=== PATIENT | male | born 1960 | race Caucasian/White ===

== ENCOUNTER 2024-01-28 20:33 | Emergency (ER) | payer BC ==
[2024-01-28 20:57] VITALS: TEMP 97.7
--- NOTE | 2024-01-28 21:02 | ED ---
General Adult HPI - General Source: patient, EMS, RN notes reviewed Mode of arrival: EMS Limitations: no limitations <Shekhar Prajapati - Last Filed: 01/28/24 22:41> <Wayne Lance - Last Filed: 01/28/24 23:53> - General Chief complaint: Syncope Stated complaint: Syncope Time Seen by Provider: 01/28/24 20:45 - History of Present Illness Initial comments: Patient is a 63-year-old male present to the emergency department with syncopal episode. Patient states he was standing in the garage and had 2 sips of wine. Patient states he felt suddenly dizzy and spinning and nauseated. Patient then passed out. No injury. Patient still feels nauseated and tired however not as severe as it was earlier. No confusion. No weakness. (Shekhar Prajapati) - Related Data Home Medications Medication Instructions Recorded Confirmed Atorvastatin [Lipitor] 10 mg PO DAILY 02/10/16 02/14/16 Losartan Potassium 100 mg PO 01/28/24 Allergies Allergy/AdvReac Type Severity Reaction Status Date / Time cat dander Allergy Itching Verified 01/28/24 21:03 Iodine and Iodide Containing Allergy Anaphylaxis Verified 02/10/16 16:08 Produc shellfish derived Allergy Anaphylaxis Verified 02/10/16 16:08 Review of Systems ROS Other: All systems not noted in ROS Statement are negative. Constitutional: Denies: fever Eyes: Denies: eye pain ENT: Denies: ear pain Respiratory: Denies: cough Cardiovascular: Denies: chest pain Endocrine: Denies: fatigue Gastrointestinal: Denies: abdominal pain Neurological: Reports: vertigo. Denies: headache, weakness <Shekhar Prajapati - Last Filed: 01/28/24 22:41> ROS Other: All systems not noted in ROS Statement are negative. <Wayne Lance - Last Filed: 01/28/24 23:53> ROS Statement: Those systems with pertinent positive or pertinent negative responses have been documented in the HPI. Past Medical History Past Medical History: Hyperlipidemia, Hypertension Additional Past Medical History / Comment(s): hx varicose veins, vertigo, diabetes-type was on medicaiton, taken off metformin in 2022 History of Any Multi-Drug Resistant Organisms: None Reported Additional Past Surgical History / Comment(s): varicose vein stripping savi legs Past Anesthesia/Blood Transfusion Reactions: Motion Sickness, Postoperative Nausea & Vomiting (PONV) Smoking Status: Never smoker Past Alcohol Use History: None Reported Past Drug Use History: None Reported - Past Family History Mother Additional Family Medical History / Comment(s): osteoporosis,Parkinson's Father Family Medical History: Diabetes Mellitus, Hypertension <Shekhar Prajapati - Last Filed: 01/28/24 22:41> General Exam Limitations: no limitations General appearance: alert, in no apparent distress Head exam: Present: normocephalic Eye exam: Present: normal appearance, PERRL, EOMI, nystagmus (Horizontal) ENT exam: Present: normal oropharynx Neck exam: Present: normal inspection Respiratory exam: Present: normal lung sounds bilaterally Cardiovascular Exam: Present: regular rate, normal rhythm, normal heart sounds GI/Abdominal exam: Present: soft. Absent: tenderness Extremities exam: Present: normal inspection Neurological exam: Present: alert, oriented X3, CN II-XII intact. Absent: motor sensory deficit Expanded Neurological exam: Present: protecting the airway Speech: Present: fluid speech Cranial nerves: EOM's Intact: Normal Motor strength exam: RUE: 5, LUE: 5, RLE: 5, LLE: 5 Eye Response: (4) open spontaneously Motor Response: (6) obeys commands Verbal Response: (5) oriented Psychiatric exam: Present: normal affect, normal mood Skin exam: Present: normal color <Shekhar Prajapati - Last Filed: 01/28/24 22:41> Course Vital Signs 01/28/24 01/28/24 01/28/24 20:38 20:56 21:44 Temperature 97.7 F Pulse Rate 80 82 84 Respiratory 16 16 15 Rate Blood Pressure 134/87 119/74 O2 Sat by Pulse 99 98 100 Oximetry 01/28/24 23:28 Temperature Pulse Rate 79 Respiratory 16 Rate Blood Pressure 114/69 O2 Sat by Pulse 95 Oximetry EKG Findings - EKG Results: EKG: interpreted by ERMD, sinus rhythm, normal axis, normal QRS, normal ST/T <Shekhar Prajapati - Last Filed: 01/28/24 22:41> Medical Decision Making - Lab Data Result diagrams: 01/28/24 20:57 01/28/24 20:57 <Shekhar Prajapati - Last Filed: 01/28/24 22:41> - Lab Data Result diagrams: 01/28/24 20:57 01/28/24 20:57 <Wayne Lance D - Last Filed: 01/28/24 23:53> - Medical Decision Making Was pt. sent in by a medical professional or institution (, [employer], DIRECTOR OF INCOME [employer]AX, urgent care, hospital, or retirement...) When possible be specific @ -[No] Did you speak to anyone other than the patient for history (EMS, parent, family, police, friend...)? What history was obtained from this source @ -[No] Did you review nursing and triage notes (agree or disagree)? Why? @ -[I reviewed and agree with nursing and triage notes] Were old charts reviewed (outside hosp., previous admission, EMS record, old EKG, old radiological studies, urgent care reports/EKG's, retirement records)? Report findings @ -[No old charts were reviewed] Differential Diagnosis (chest pain, altered mental status, abdominal pain women, abdominal pain men, vaginal bleeding, weakness, fever, dyspnea, syncope, headache, dizziness, GI bleed, back pain, seizure, CVA, palpatations, mental health, musculoskeletal)? @ -Differential Dizziness: Benign paroxysmal positional Vertigo, Meniere's disease, otitis media, acoustic neuroma, vertebrobasilar insufficiency, cerebellar stroke, encephalitis, hypovolemic, arrhythmia, coronary artery syndrome, anemia, this is not meant to be an all-inclusive list EKG interpreted by me (3pts min.). @ -[As above] X-rays interpreted by me (1pt min.). @ -Chest x-ray shows no acute process CT interpreted by me (1pt min.). @ -CT brain shows no acute process U/S interpreted by me (1pt. min.). @ -[None done] What testing was considered but not performed or refused? (CT, X-rays, U/S, labs)? Why? @ -[None] What meds were considered but not given or refused? Why? @ -[None] Did you discuss the management of the patient with other professionals (professionals i.e. , [employer]ADIJAH, DIRECTOR OF INCOME [employer], lab, RT, psych nurse, social science teacher, pigment grinder, teacher, wildlife officer, case management manager)? Give summary @ -[No] Was smoking cessation discussed for >3mins.? @ -[No] Was critical care preformed (if so, how long)? @ -[No] Were there social determinants of health that impacted care today? How? (Homelessness, low income, unemployed, alcoholism, drug addiction, transportation, low edu. Level, literacy, decrease access to med. care, longterm, rehab)? @ -[No] Was there de-escalation of care discussed even if they declined (Discuss DNR or withdrawal of care, Hospice)? DNR status @ -[No] What co-morbidities impacted this encounter? (DM, HTN, Smoking, COPD, CAD, Cancer, CVA, ARF, Chemo, Hep., AIDS, mental health diagnosis, sleep apnea, morbid obesity)? @ -[None] Was patient admitted / discharged? Hospital course, mention meds given and route, prescriptions, significant lab abnormalities, going to OR and other pertinent info. @ -Patient presents with dizziness episode associated with syncopal episode. Patient provided medications and revaluation patient is feeling better. (Shekhar Prajapati) Patient care signed out to me by Dr. Prajapati at 10:45 PM. Briefly, patient presents to the emergency department with syncope and vertiginous symptoms. According to Dr. Prajapati patient did not have any high risk features of vertigo to suggest central nervous system cause. At signout was to follow-up with pending CT angiography head and neck. @11:[address] angiography of the head and neck was performed. Films interpreted by radiology found to be unremarkable. No evidence of large vessel occlusion. Patient reevaluated bedside 11:52 PM states that he has chronic vertigo. He does not have any vertigo or STE[employer]OWER SUPERINTENDENT type symptoms today. at the bedside states that he is only here because he passed out. Nonetheless patient will be discharged. He denies any cardiac history. Patient desires cultures. Be discharged. (Wayne Lance) - Lab Data Lab Results 01/28/24 01/28/24 01/28/24 Range/Units 19:37 20:57 20:57 WBC 8.3 (3.8-10.6) k/uL RBC 4.61 (4.30-5.90) m/uL Hgb 14.4 (13.0-17.5) gm/dL Hct 45.9 (39.0-53.0) % MCV 99.6 (80.0-100.0) fL MCH 31.3 (25.0-35.0) pg MCHC 31.5 (31.0-37.0) g/dL RDW 12.8 (11.5-15.5) % Plt Count 208 (150-450) k/uL MPV 7.0 Neutrophils % 68 % Lymphocytes % 21 % Monocytes % 6 % Eosinophils % 1 % Basophils % 1 % Neutrophils # 5.7 (1.3-7.7) k/uL Lymphocytes # 1.8 (1.0-4.8) k/uL Monocytes # 0.5 (0-1.0) k/uL Eosinophils # 0.1 (0-0.7) k/uL Basophils # 0.1 (0-0.2) k/uL Hypochromasia Slight PT 11.2 (10.0-12.5) sec INR 1.0 (<1.2) APTT 21.5 L (22.0-30.0) sec Sodium (137-145) mmol/L Potassium (3.5-5.1) mmol/L Chloride (98-107) mmol/L Carbon Dioxide (22-30) mmol/L Anion Gap mmol/L BUN (9-20) mg/dL Creatinine (0.66-1.25) mg/dL Est GFR (CKD-EPI)AfAm (>60 ml/min/1.73 sqM) Est GFR (CKD-EPI)NonAf (>60 ml/min/1.73 sqM) Glucose (74-99) mg/dL Calcium (8.4-10.2) mg/dL Magnesium (1.6-2.3) mg/dL Total Bilirubin (0.2-1.3) mg/dL AST (17-59) U/L ALT (4-49) U/L Alkaline Phosphatase (38-126) U/L Troponin I (0.000-0.034) ng/mL Total Protein (6.3-8.2) g/dL Albumin (3.5-5.0) g/dL Serum Alcohol <10 mg/dL 01/28/24 01/28/24 Range/Units 20:57 20:57 WBC (3.8-10.6) k/uL RBC (4.30-5.90) m/uL Hgb (13.0-17.5) gm/dL Hct (39.0-53.0) % MCV (80.0-100.0) fL MCH (25.0-35.0) pg MCHC (31.0-37.0) g/dL RDW (11.5-15.5) % Plt Count (150-450) k/uL MPV Neutrophils % % Lymphocytes % % Monocytes % % Eosinophils % % Basophils % % Neutrophils # (1.3-7.7) k/uL Lymphocytes # (1.0-4.8) k/uL Monocytes # (0-1.0) k/uL Eosinophils # (0-0.7) k/uL Basophils # (0-0.2) k/uL Hypochromasia PT (10.0-12.5) sec INR (<1.2) APTT (22.0-30.0) sec Sodium 140 (137-145) mmol/L Potassium 4.0 (3.5-5.1) mmol/L Chloride 107 (98-107) mmol/L Carbon Dioxide 23 (22-30) mmol/L Anion Gap 10 mmol/L BUN 35 H (9-20) mg/dL Creatinine 1.29 H (0.66-1.25) mg/dL Est GFR (CKD-EPI)AfAm 69 (>60 ml/min/1.73 sqM) Est GFR (CKD-EPI)NonAf 60 (>60 ml/min/1.73 sqM) Glucose 107 H (74-99) mg/dL Calcium 9.8 (8.4-10.2) mg/dL Magnesium 2.0 (1.6-2.3) mg/dL Total Bilirubin 0.5 (0.2-1.3) mg/dL AST 41 (17-59) U/L ALT 34 (4-49) U/L Alkaline Phosphatase 59 (38-126) U/L Troponin I <0.012 (0.000-0.034) ng/mL Total Protein 7.0 (6.3-8.2) g/dL Albumin 4.4 (3.5-5.0) g/dL Serum Alcohol mg/dL Disposition <Shekhar Prajapati - Last Filed: 01/28/24 22:41> Is patient prescribed a controlled substance at d/c from ED?: No Time of Disposition: 23:53 <Wayne Lance - Last Filed: 01/28/24 23:53> Clinical Impression: Syncope Disposition: HOME SELF-CARE Condition: Fair Instructions (If sedation given, give patient instructions): Syncope (ED) Referrals: Urban Taylor MD [Primary Care Provider] - 1-2 days
[2024-01-28 21:22] LABS: Basophils # (A) 0.1 k/uL (0-0.2); Basophils % (A) 1 %; Eosinophils # (A) 0.1 k/uL (0-0.7); Eosinophils % (A) 1 %; HCT 45.9 % (39.0-53.0); HGB 14.4 gm/dL (13.0-17.5); Hypochromasia Slight; Lymphocytes # (A) 1.8 k/uL (1.0-4.8); Lymphocytes % (A) 21 %; MCH 31.3 pg (25.0-35.0); MCHC 31.5 g/dL (31.0-37.0); MCV 99.6 fL (80.0-100.0); Monocytes # (A) 0.5 k/uL (0-1.0); Monocytes % (A) 6 %; Neutrophils # (A) 5.7 k/uL (1.3-7.7); Neutrophils % (A) 68 %; Platelet Count 208 k/uL (150-450); RBC 4.61 m/uL (4.30-5.90); RDW 12.8 % (11.5-15.5); WBC 8.3 k/uL (3.8-10.6)
[2024-01-28] MEDS: METOCLOPRAMIDE 5 MG/ML 2 ML VIAL IVP STA (21:35)
[2024-01-28] MEDS: diphenhydrAMINE 50 MG/ML 1 ML VIAL IVP STA (21:35)
[2024-01-28] MEDS: methylPREDNISolone SOD SUCCI 125 MG/2 ML VIAL IV STA (21:35)
[2024-01-28] MEDS: FAMOTIDINE 20 MG/2 ML VIAL IV STA (21:36)
[2024-01-28] MEDS: MECLIZINE 12.5 MG TAB PO STA (21:36)
[2024-01-28] MEDS: SODIUM CHLORIDE 0.9% 1,000 ML IV STA (21:36)
[2024-01-28 21:40] LABS: ALT 34 U/L (4-49); AST 41 U/L (17-59); African American GFR (CKD) 69 (>60 ml/min/1.73 sqM); Albumin 4.4 g/dL (3.5-5.0); Alkaline Phosphatase 59 U/L (38-126); Anion Gap 10 mmol/L; Blood Urea Nitrogen 35 mg/dL (9-20); Calcium 9.8 mg/dL (8.4-10.2); Carbon Dioxide 23 mmol/L (22-30); Chloride 107 mmol/L (98-107); Glucose 107 mg/dL (74-99); Non-African American GFR(CKD) 60 (>60 ml/min/1.73 sqM); Sodium 140 mmol/L (137-145); Total Bilirubin 0.5 mg/dL (0.2-1.3)
[2024-01-28 22:01] LABS: Prothrombin Time 11.2 sec (10.0-12.5)
[2024-01-28 22:08] LABS: Partial Thromboplastin Time 21.5 sec (22.0-30.0)
--- NOTE | 2024-01-28 22:19 | XR ---
EXAMINATION TYPE: XR chest 2V DATE OF EXAM: 01/28/2024 COMPARISON: NONE HISTORY: Syncope. TECHNIQUE: Frontal and lateral views of the chest are obtained. FINDINGS: Overlying EKG leads are present. There is no focal air space opacity, pleural effusion, or pneumothorax seen. The cardiac silhouette size is within normal limits. The osseous structures are intact. IMPRESSION: No acute cardiopulmonary process. [facility], , 01/28/2024 10:17 PM
--- NOTE | 2024-01-28 22:25 | CT ---
EXAMINATION TYPE: CT brain wo con DATE OF EXAM: 01/28/2024 HISTORY: Syncope. CT DLP: 1150.4 mGycm. Automated Exposure Control for Dose Reduction was Utilized. TECHNIQUE: CT scan of the head is performed without contrast. COMPARISON: None. FINDINGS: There is no acute intracranial hemorrhage or midline shift identified. Ventricles and sul ci within normal limits in size for patient's age. Elena-white matter differentiation is maintained. B ilateral aphakia is present. The visualized sinuses are clear. IMPRESSION: No acute intracranial hemorrhage or midline shift. [facility], , 01/28/2024 10:23 PM
--- NOTE | 2024-01-28 23:25 | CT ---
EXAMINATION TYPE: CT angio head neck DATE OF EXAM: 01/28/2024 HISTORY: Brought in by EMS for syncope, pt felt great all day, went to dinner with came home and had a sudden onset on dizziness with nausea and fatigue. Pt called EMS and felt fine so he didn't co me to the ER, the dizziness continued he got up and fell onto his knees, denies hitting his head. Wi fe called EMS and he was brought to the ER. States he is dizzy, tired, or nauseous COMPARISON: None. CT DLP: 501.6 mGycm. Automated Exposure Control for Dose Reduction was Utilized. TECHNIQUE: CTA scan of the head and neck is performed with IV Contrast, patient injected with 100 mL of Isovue 370, axial images are obtained, coronal and sagittal reformatted images are reviewed. 3D r econstructed images are created on an independent workstation and reviewed. FINDINGS: Carotid/Vascular Structures: Normal 3 vessel origin from the aortic arch. Contiguous carotid and vert ebral arteries. No linear hypodensity to suggest dissection. Mild peripheral calcified plaque left ca rotid bulb extending into proximal internal carotid artery without significant stenosis. No significa nt stenosis in right common or internal carotid artery. Mild to moderate peripheral calcified plaque distal internal carotid arteries bilaterally. Left vertebral artery is dominant. Patent anterior comm unicating artery is seen. No large vessel occlusion or aneurysm at level of [place]. Patent external carotid arteries bilaterally are noted. Other: Lower pole hypodense thyroid nodules measuring up to 10 mm axial image 40 on the left. Mild to moderate disc space narrowing at C6-C7 level. IMPRESSION: No significant vascular abnormality is seen. NASCET criteria was used in interpretation of this exam? [facility], , 01/28/2024 11:23 PM
[2024-01-28 23:36] VITALS: RESP 16
[2024-01-29 00:29] VITALS: BP 113/73; PULSE 76
== END 2024-01-29 | disposition home or self-care (01) ==
LOC: EC 20:33
CPT/HCPCS: 36415; 70450; 70496; 70498; 71046; 80053; 80320; 83735; 84484; 85025; 85610; 85730; 93005; 96361; 96374; 96375; 99285

== ENCOUNTER → 2024-04-27 | Outpatient (CLI) | payer BC ==
[2024-04-27 21:41] LABS: ALT 26 U/L (10-49); AST 23 U/L (14-35); Albumin 4.6 g/dL (3.8-4.9); Albumin/Globulin Ratio 1.77 Ratio (1.60-3.17); Alkaline Phosphatase 74 U/L (41-126); Appearance,Urine Turbid (Clear); BUN/Creat Ratio 24.88 Ratio (12.00-20.00); Bilirubin,Urine Negative (Negative); Blood Urea Nitrogen 19.9 mg/dL (9.0-27.0); Blood,Urine Large (Negative); Calcium 9.4 mg/dL (8.7-10.3); Carbon Dioxide 25.3 mmol/L (21.6-31.8); Chloride 103 mmol/L (96-109); Color,Urine Yellow (Yellow); Globulin 2.6 g/dL (1.6-3.3); Glucose 123 mg/dL (70-110); Ketones,Urine Negative (Negative); Magnesium 2.2 mg/dL (1.5-2.4); Nitrite,Urine Negative (Negative); Phosphorus 2.7 mg/dL (2.4-5.1); Potassium 4.3 mmol/L (3.5-5.5); Sodium 139 mmol/L (135-145); Specific Gravity,Urine 1.023 (1.001-1.030); Total Bilirubin 0.4 mg/dL (0.3-1.2); Total Protein 7.2 g/dL (6.2-8.2)
[2024-04-27 22:08] LABS: Basophils # (A) 0.04 X 10*3/uL (0.00-0.10); Basophils % (A) 0.4 %; Eosinophils # (A) 0.08 X 10*3/uL (0.04-0.35); Eosinophils % (A) 0.8 %; HCT 46.3 % (39.6-50.0); HGB 14.6 g/dL (13.0-17.0); Lymphocytes # (A) 1.45 X 10*3/uL (0.90-5.00); Lymphocytes % (A) 15.4 %; MCH 30.4 pg (27.0-32.0); MCHC 31.5 g/dL (32.0-37.0); MCV 96.3 FL (80.0-97.0); Mean Platelet Volume 10.5 FL (9.5-12.2); Monocytes # (A) 0.58 X 10*3/uL (0.20-1.00); Monocytes % (A) 6.1 %; NRBC Per 100 WBC 0 X 10*3/uL (0.00-0.01); Neutrophils # (A) 7.26 X 10*3/uL (1.80-7.70); Platelet Count 247 X 10*3/uL (140-440); RBC 4.81 X 10*6/uL (4.40-5.60); RDW 13.2 % (11.5-14.5); WBC 9.44 X 10*3/uL (4.50-10.00)
[2024-04-27 22:22] LABS: Bacteria,Urine None Seen (None Seen); Calcium Oxalate Crystals,Urine Present (None Seen)
== END | disposition home or self-care (01) ==
LOC: LABWHC1 13:50
PROVIDERS: ATTEND Internal Medicine Nephrology
DX: D64.9 Anemia, unspecified (principal); N39.0 Urinary tract infection, site not specified; R80.9 Proteinuria, unspecified
CPT/HCPCS: 36415; 80053; 81001; 83735; 84100; 85025

== ENCOUNTER → 2024-06-29 | Outpatient (CLI) | payer BC ==
[2024-06-29 09:54] LABS: Appearance,Urine Clear (Clear); Bilirubin,Urine Negative (Negative); Blood,Urine Negative (Negative); Color,Urine Light Yellow; Glucose,Urine (UA) Negative (Negative); Ketones,Urine Negative (Negative); Leukocyte Esterase,Urine Negative (Negative); Nitrite,Urine Negative (Negative); PH, Urine 5.5 (5.0-8.0); Protein,Urine Negative (Negative); Specific Gravity,Urine 1.021 (1.001-1.035); Urobilinogen,Urine <2.0 mg/dL (<2.0)
[2024-06-29 15:08] LABS: Basophils # (A) 0.04 X 10*3/uL (0.00-0.10); Basophils % (A) 0.6 %; Eosinophils # (A) 0.18 X 10*3/uL (0.04-0.35); Eosinophils % (A) 2.6 %; HCT 45.1 % (39.6-50.0); HGB 14.6 g/dL (13.0-17.0); Lymphocytes % (A) 21.9 %; MCH 30.9 pg (27.0-32.0); MCHC 32.4 g/dL (32.0-37.0); MCV 95.6 FL (80.0-97.0); Mean Platelet Volume 10.6 FL (9.5-12.2); Monocytes # (A) 0.52 X 10*3/uL (0.20-1.00); Monocytes % (A) 7.6 %; NRBC Per 100 WBC 0 X 10*3/uL (0.00-0.01); Platelet Count 236 X 10*3/uL (140-440); RBC 4.72 X 10*6/uL (4.40-5.60); RDW 13.1 % (11.5-14.5); WBC 6.86 X 10*3/uL (4.50-10.00)
[2024-06-29 15:31] LABS: Hepatitis A Antibody IgM Nonreactive (Nonreactive)
[2024-06-29 15:32] LABS: Hepatitis B Core IgM Nonreactive (Nonreactive); Hepatitis B Surface Antigen Nonreactive (Nonreactive); Hepatitis C IgG Antibody Nonreactive (Nonreactive)
[2024-06-29 15:49] LABS: % Iron Saturation 20.45 (15.00-50.00); Albumin 4.5 g/dL (3.8-4.9); BUN/Creat Ratio 26.67 Ratio (12.00-20.00); Calcium 9.8 mg/dL (8.7-10.3); Carbon Dioxide 25.3 mmol/L (21.6-31.8); Chloride 104 mmol/L (96-109); Chol/HDL Ratio 3.11 Ratio; Glucose 123 mg/dL (70-110); Iron 81 UG/DL (65-175); Potassium 5.1 mmol/L (3.5-5.5); Sodium 138 mmol/L (135-145); Total Iron Binding Capacity 396 UG/DL (228-460); Uric Acid 4.5 mg/dL (3.7-8.7); VLDL Calculation 12.06 mg/dL (5.00-40.00)
[2024-06-29 17:28] LABS: Anti-DNA, DS unit <1.0 IU/mL; DNA Double-Stranded Negative (Negative)
[2024-06-29 19:28] LABS: Microalbumin Creatinine Ratio <12 mg/g Cr (0-30)
[2024-06-30 11:58] LABS: Protein, Total 7.4 g/dL (6.2-8.2)
[2024-06-30 15:01] LABS: C-ANCA <1:20 Titer (<1:20)
[2024-06-30 15:13] LABS: Free Kappa Lt Chain Qnt, Serum 1.78 mg/dL (0.33-1.94); Free Lambda Lt Chain Qnt, Seru 1.33 mg/dL (0.57-2.63)
== END | disposition home or self-care (01) ==
LOC: LABWHC1 08:25
PROVIDERS: ATTEND Internal Medicine Nephrology
DX: E55.9 Vitamin D deficiency, unspecified (principal); E78.5 Hyperlipidemia, unspecified; M10.9 Gout, unspecified; D64.9 Anemia, unspecified; R31.9 Hematuria, unspecified; R80.9 Proteinuria, unspecified; R53.83 Other fatigue
CPT/HCPCS: 36415; 80048; 80061; 80074; 81003; 82040; 82043; 82306; 82570; 82728; 83516; 83540; 83550; 83735; 83883; 83970; 84165; 84550; 85025; 86038; 86160; 86162; 86225; 86255; 86334